=== PATIENT | female | born 1950 | race Caucasian/White ===

== ENCOUNTER → 2023-06-01 13:09 | Outpatient (REF) | payer MEDICARE, BC, SELFPAY ==
[2023-06-01 13:53] LABS: % Basophils 0.1 % (0-2); % Immature Granulocytes 0.4 % (0-0.5); % Lymphocytes 7.9 % (20.5-51.1); % Monocytes 8.3 % (1.7-9.3); % Neutrophils 83.3 % (42.2-75.2); Absolute Lymphocytes 0.6 10^3/uL (1.2-3.4); Absolute Monocytes 0.6 10^3/uL (0.1-0.6); Absolute Neutrophils 5.8 10^3/uL (1.4-6.5); Hematocrit 42.2 % (37.0-47.0); Hemoglobin 13.7 g/dL (12.0-16.0); Mean Corp Hgb Conc. 32.5 g/dL (33.0-37.0); Mean Corpuscular Hgb 31.9 pg (27.0-31.0); Mean Corpuscular Volume 98.4 fL (81.0-99.0); Nucleated Red Blood Cells % 0 %; Platelet Count 103 10^3/uL (130-400); Red Blood Cell Count 4.29 10^6/uL (4.20-5.40)
== END ==
LOC: OIDL 13:09
PROVIDERS: ATTENDING PHYSICIAN Internal Medicine Hematology & Oncology
DX: C79.51 Secondary malignant neoplasm of bone (principal); C34.80 Malignant neoplasm of overlapping sites of unspecified bronchus and lung; I80.03 Phlebitis and thrombophlebitis of superficial vessels of lower extremities, bilateral; C34.32 Malignant neoplasm of lower lobe, left bronchus or lung; E87.6 Hypokalemia
CPT/HCPCS: 85025

== ENCOUNTER → 2023-07-13 14:43 | Outpatient (REF) | payer MEDICARE, BC, SELFPAY | LOC: CLAB 14:43 | PROVIDERS: ATTENDING PHYSICIAN Internal Medicine Hematology & Oncology | DX: C79.51 Secondary malignant neoplasm of bone (principal); C34.80 Malignant neoplasm of overlapping sites of unspecified bronchus and lung; I80.03 Phlebitis and thrombophlebitis of superficial vessels of lower extremities, bilateral; C34.32 Malignant neoplasm of lower lobe, left bronchus or lung; E03.9 Hypothyroidism, unspecified; D53.9 Nutritional anemia, unspecified; R53.83 Other fatigue; R79.9 Abnormal finding of blood chemistry, unspecified; D50.9 Iron deficiency anemia, unspecified; D64.9 Anemia, unspecified; C34.11 Malignant neoplasm of upper lobe, right bronchus or lung; E87.6 Hypokalemia | CPT/HCPCS: 80053; 83880 ==

== ENCOUNTER → 2023-07-27 15:31 | Outpatient (REF) | payer MEDICARE, BC, SELFPAY ==
[2023-07-27 15:25] LABS: % Basophils 0.1 % (0-2); % Eosinophils 2.5 % (0-6); % Immature Granulocytes 0.4 % (0-0.5); % Lymphocytes 12.6 % (20.5-51.1); % Monocytes 10.6 % (1.7-9.3); % Neutrophils 73.8 % (42.2-75.2); Absolute Eosinophils 0.2 10^3/uL (0-0.7); Absolute Monocytes 0.8 10^3/uL (0.1-0.6); Absolute Neutrophils 5.6 10^3/uL (1.4-6.5); Hemoglobin 12.5 g/dL (12.0-16.0); Mean Corp Hgb Conc. 32.9 g/dL (33.0-37.0); Mean Corpuscular Hgb 31.4 pg (27.0-31.0); Mean Corpuscular Volume 95.5 fL (81.0-99.0); Mean Platelet Volume 10.6 fL (7.4-10.4); Nucleated Red Blood Cells % 0 %; Platelet Count 69 10^3/uL (130-400); Red Blood Cell Count 3.98 10^6/uL (4.20-5.40); Red Cell Dist. Width 15.5 % (11.5-14.5); White Blood Cell Count 7.6 10^3/uL (4.8-10.8)
[2023-07-27 15:33] LABS: ALT (SGPT) 19 U/L (0-35); AST (SGOT) 39 U/L (14-36); Albumin 3.8 g/dl (3.5-5.0); Alkaline Phosphatase 117 U/L (38-126); Blood Urea Nitrogen 40 mg/dl (7-17); Calcium 9.2 mg/dl (8.4-10.2); Carbon Dioxide 23 mmol/L (22-30); Chloride 103 mmol/L (98-107); Glucose 88 mg/dl (70-99); Potassium 3.8 mmol/L (3.5-5.1); Sodium 136 mmol/L (135-145); Total Bilirubin 1.2 mg/dl (0.2-1.3); Total Protein 6.8 g/dl (6.3-8.2); eGFR 52.73
[2023-07-27 16:03] LABS: TSH Reflex To Free T4 3.45 uIU/ml (0.47-4.68)
== END ==
LOC: OIDL 15:31
PROVIDERS: ATTENDING PHYSICIAN Internal Medicine Hematology & Oncology
DX: C79.51 Secondary malignant neoplasm of bone (principal); E03.9 Hypothyroidism, unspecified
CPT/HCPCS: 80053; 84443; 85025

== ENCOUNTER → 2024-01-05 16:13 | Outpatient (REF) | payer MEDICARE, BC, SELFPAY ==
[2024-01-05 14:50] LABS: % Basophils 0.1 % (0-2); % Eosinophils 0.7 % (0-6); % Immature Granulocytes 0.1 % (0-0.5); % Lymphocytes 15.1 % (20.5-51.1); Absolute Eosinophils 0.1 10^3/uL (0-0.7); Absolute Monocytes 0.6 10^3/uL (0.1-0.6); Absolute Neutrophils 5.2 10^3/uL (1.4-6.5); Hematocrit 33.8 % (37.0-47.0); Hemoglobin 11.1 g/dL (12.0-16.0); Mean Corp Hgb Conc. 32.8 g/dL (33.0-37.0); Mean Corpuscular Hgb 32.9 pg (27.0-31.0); Mean Corpuscular Volume 100.3 fL (81.0-99.0); Mean Platelet Volume 9.2 fL (7.4-10.4); Platelet Count 138 10^3/uL (130-400); Red Blood Cell Count 3.37 10^6/uL (4.20-5.40); Red Cell Dist. Width 15.8 % (11.5-14.5); White Blood Cell Count 6.9 10^3/uL (4.8-10.8)
[2024-01-05 16:01] LABS: ALT (SGPT) 15 U/L (0-35); AST (SGOT) 31 U/L (14-36); Albumin 4.3 g/dl (3.5-5.0); Alkaline Phosphatase 116 U/L (38-126); Blood Urea Nitrogen 29 mg/dl (7-17); Calcium 9.8 mg/dl (8.4-10.2); Carbon Dioxide 27 mmol/L (22-30); Chloride 100 mmol/L (98-107); Glucose 97 mg/dl (70-99); Potassium 3.8 mmol/L (3.5-5.1); Sodium 140 mmol/L (135-145); Total Bilirubin 0.9 mg/dl (0.2-1.3); Total Protein 7.1 g/dl (6.3-8.2); eGFR 47.21
== END ==
LOC: OIDL 16:13
PROVIDERS: ATTENDING PHYSICIAN Internal Medicine Hematology & Oncology
DX: C79.51 Secondary malignant neoplasm of bone (principal)
CPT/HCPCS: 80053; 85025

== ENCOUNTER → 2024-05-02 13:55 | Outpatient (REF) | payer MEDICARE, BC, SELFPAY | LOC: RCS 13:55 | PROVIDERS: ATTENDING PHYSICIAN Internal Medicine Cardiovascular Disease; FAMILY PHYSICIAN Family Medicine | DX: R06.02 Shortness of breath (principal) | CPT/HCPCS: 93306 ==

== ENCOUNTER → 2024-05-06 12:44 | Outpatient (REF) | payer MEDICARE, BC, SELFPAY ==
--- NOTE | 2024-05-06 13:15 | W.PN.UPDATE ---
Update Note
Progress Note Update
73 yo female with h/o lung cancer. She had a SL port placed in 2018 for chemotherapy. Most recently she was on antibiotics for erythema along the catheter. She states the erythema came back and her physician is concerned for infection. She denies
fever, chills, warmth, tenderness or swelling.
PE: 73 yo female in NAD. Color is good, skin warm and dry. She has erythema along the superior 2/3 of the catheter. It is not warm or tender. Ther is no fluctuance. No swelling. No active sign of cellullitis
A/P: 73 yo female with h/o lung cancer s/p SL port placement in 2018
There is erythema along the port catheter. No immediate concern for cellulitis but since she is no longer using the port we recommend removal
== END ==
LOC: RADI 12:44
PROVIDERS: ATTENDING PHYSICIAN Nurse Practitioner Adult Health; FAMILY PHYSICIAN Family Medicine
DX: T82.898A Other specified complication of vascular prosthetic devices, implants and grafts, initial encounter (principal); Y82.8 Other medical devices associated with adverse incidents; C34.32 Malignant neoplasm of lower lobe, left bronchus or lung; C34.11 Malignant neoplasm of upper lobe, right bronchus or lung

== ENCOUNTER → 2024-05-12 12:33 | Outpatient (REF) | payer MEDICARE, BC, SELFPAY ==
[2024-05-12 12:50] VITALS: BP 150/72; BP_SYST 85
[2024-05-12 14:05] VITALS: BP 137/76
== END ==
LOC: RADI 12:33
PROVIDERS: ATTENDING PHYSICIAN Nurse Practitioner Adult Health; FAMILY PHYSICIAN Family Medicine
DX: Z45.2 Encounter for adjustment and management of vascular access device (principal); C34.32 Malignant neoplasm of lower lobe, left bronchus or lung
CPT/HCPCS: 36590; 77001

== ENCOUNTER 2024-09-19 20:58 | Emergency (ER) | payer MEDICARE, BC, SELFPAY ==
[2024-09-19 21:02] VITALS: BP 130/74
--- NOTE | 2024-09-20 00:32 | ED.GENMED ---
History of Present Illness
General
Chief Complaint: Skin Surface Trauma
Source: patient
Exam Limitations: none
Time Seen by Provider: 09/20/24 00:27
Nursing documentation reviewed up to this point in time: agreed with
History of Present Illness
History of Present Illness:
Note:
CHIEF COMPLAINT(S)
Bleeding and swelling of the right fifth finger.
HISTORY OF PRESENT ILLNESS
The patient is a 73-year-old female with a history of gout, asthma, hypothyroidism, A-fib however not anticoagulated, lower platelet with status post cancer treatment few years ago, presents with persistent bleeding and swelling of the right fifth
finger. Approximately two weeks ago, the patient sustained a minor trauma to the finger, causing it to swell times its normal size. The swelling was present even before the trauma and she is diagnosed with gout. The patient reports that the bleeding
has been continuous since the injury, despite attempts to apply pressure bandages as instructed by their primary care physicians physician mental health assistant. The patient states that the bleeding increases when the bandage is removed. The patient also
describes the pain as significant and persistent, with pain relief efforts using [id number] medications such as acetaminophen and ibuprofen proving ineffective.
The patients primary care physician, Dr. Rosenberg, expressed concerns about the patients platelet and white blood cell counts contributing to the bleeding. The patient was prescribed allopurinol recently and has not started taking it.
CHRONIC MEDICAL CONDITIONS SIGNIFICANTLY AFFECTING CARE
Gout
ALLERGIES
None reported by the patient.
MEDICATIONS
Allopurinol (recently started for gout).
REVIEW OF SYSTEMS
See HPI
PHYSICAL EXAM
General: Patient is well appearing and in no acute distress; non-toxic
Skin: Warm and dry, small wound noted to the right posterior medial aspect of the fifth digit active bleeding noted
Head: Normocephalic, atraumatic
Eyes: Sclera non-icteric. EOMs intact.
Cardiac: Regular rate and rhythm, no murmur
Pulm: Normal respiratory effort
Musculoskeletal: Mild tenderness palpation over the right fifth digit with some mild swelling. No clear fluid collection or abscess for drainage. 5 out of 5 strength to the digits of the right hand, good strength against resistance. No tenderness
palpation along the flexor sheath.
Neuro: CN II-XII intact, no focal neurologic deficits.
Psychiatric: Appropriate mood and affect.
PROBLEM LIST
Acute Problems:
1. Persistent bleeding of the right fifth finger.
2. Wound care and monitoring for potential infection risk.
Chronic Problems:
1. Gout
PLAN
1. Administer pressure dressing with a hemostatic agent to attempt to control bleeding.
2. Update tetanus vaccination due to the open wound.
3. Monitor the patient for any signs of continued bleeding or instability in the emergency department for approximately 30 minutes post-intervention.
4. Consider antibiotics if infection is suspected.
5. Follow-up with the patients primary care physician for further evaluation of platelet status and possible adjustment in gout management.
6. Encourage patient to contact primary care for follow-up to ensure wound healing and no further complications.
DIFFERENTIAL DIAGNOSIS
The Differential Diagnosis includes, in no particular order and is not limited to:
1. Gout flare with complications
2. Soft tissue infection or cellulitis
3. Hematoma leading to continuous bleeding
4. Coagulopathy or platelet disorder
5. Localized vasculitis or other inflammatory process
6. Malignancy or skin neoplasm
7. Benign skin ulceration
8. Reaction to newly prescribed medication (allopurinol)
9. Nonhealing wound secondary to systemic illness
10. Traumatic finger injury with persistent soft tissue damage.
CHART REVIEW reviewed
Reviewed ER physician documentation from 11/25/2021 patient seen for blood blister hemostasis was achieved with silver nitrate cautery
Discharge summary from 09/07/2017 patient seen for acute dyspnea secondary to pneumonia versus progression of lung adenocarcinoma
MDM/DISPOSITION
73-year-old female with past medical history of thrombocytopenia presents emergency department today with persistent bleeding from her right finger wound. She reports that she got the bleeding under control with a Band-Aid but then when she remove
the Band-Aid, the bleeding seems to start again. Hemostasis achieved today with surgicel and pressure dressing. She does have some mild surrounding erythema to the wound with some tenderness and swelling. Likely secondary to gout flare as noted
by patient's primary however considering open wound will initiate antibiotics to cover for developing infection. Chest x-ray which showed no fracture or dislocation. Her tetanus was updated. Patient stable for discharge.
Past History
Past History
ED Past Medical History: Asthma, Cancer (left Lung Mass), HTN, Hypothyroidism and Other (PE)
ED Past Surgical History: Other (Right port placed, IVC filter)
Social History
Tobacco: Former smoker
Alcohol: Daily (Wine 1-2 glasses)
Drug: None
Personal:
Living: alone
Review of Systems
Review of Systems
All Other Systems: ROS reviewed and negative except as documented in HPI and ROS
Phy Exam
Physical Exam
Physical Exam:
see hpi
Course
Orders/Labs/Results
Orders:
Orders
09/20/24 01:04
Tranexamic Acid 500 mg TOPICAL NOW STA
09/20/24 01:05
Tetanus/Diphth/Acelpertussis [Adacel] 0.5 ml IM .ONCE ONE
09/20/24 01:06
Finger(s)/Thumb 2 View Rt [CR Finger(s)/thumb Min 2 Vw Rt] Urgent
Comment:
Reason For Exam: right finger pain after trauma
Vital Signs
Initial and Last Documented VS:
Initial Vital Signs
Temp Pulse Resp BP Pulse Ox
98.0 F 95 20 130/74 96
09/19/24 21:02 09/19/24 21:02 09/19/24 21:02 09/19/24 21:02 09/19/24 21:02
Last Documented Vital Signs
Temp Pulse Resp BP Pulse Ox
98.0 F 85 20 109/64 97
09/19/24 21:02 09/20/24 01:29 09/19/24 21:02 09/20/24 01:29 09/20/24 01:29
*Pulse Oximetry
SaO2: 96
Oxygen Mode of Delivery: Room air
Patient hypoxic: no
*Critical Care Note
Total Time (30-74mins, 75-104mins- exclusive of procedures): Not Applicable
ED Attending Note
-
Portions of this chart may have been created with voice recognition software.� Occasional wrong word or��sound alike� substitutions may have occurred due to the inherent limitations of voice recognition software.
Discharge Plan
Departure
Patient Disposition: Home (Routine Discharge)
Date of Disposition: 09/20/24
Time of Disposition: 02:
Patient with high blood pressure during this ER visit?: Yes
Condition: Good
Discharge Problem:
Finger wound, simple, open
Instructions: Wound Care ([place]), [facility] for W[facility] Healing-Wounds, BLOOD PRESSURE
Prescriptions:
New
cephalexin 500 mg capsule
500 mg PO TID 7 Days Qty: 21 0RF
No Action
diltiazem HCl 120 MG capsule,extended release 24hr
120 mg PO DAILY Qty: 30 0RF
folic acid 1 MG tablet
1 mg PO DAILY
ondansetron HCl 4 MG tablet
8 mg PO Q8HPRN PRN (Reason: nausea)
prochlorperazine maleate 10 MG tablet
10 mg PO Q8HPRN PRN (Reason: nausea /chemo)
acetaminophen 325 MG tablet
500 mg PO Q4HPRN PRN (Reason: PAIN)
losartan 25 MG tablet
25 mg PO DAILY
levothyroxine 50 MCG tablet
50 mcg PO DAILY
furosemide [Lasix] 40 MG tablet
40 mg PO DAILY
Referrals:
Tammy Ramírez DO [Family Provider, Family Practice]
Activity Restrictions/Additional Instructions:
Please keep dressing in place for 24 hours. After 24 hours, you can remove the dressing and change dressing once daily. Please schedule a follow-up appointment with your primary care provider for a wound check.
Surgicel was applied to the wound.
Keflex has been sent to your pharmacy. Starting tomorrow, please take 1 tablet 3 times daily for 7 days. Please follow-up with your supervisor molding.
Please return to the emergency department should you develop an acute worsening of your symptoms, increasing pain or swelling, inability to range your finger, fevers or chills, or any other signs or symptoms worrisome to you.
Interventions
Interventions:
*Risk Screen - Suicide Last Done: 09/20/24 01:37
*General Assessment Last Done: 09/19/24 21:02
*Neglect/Abuse Screening Last Done: 09/20/24 01:00
*ED- Fall Risk Assessment Last Done: 09/20/24 01:30
*ED COVID-19 Vaccine History Last Done: 09/20/24 01:30
*Nursing Disposition Last Done: 09/20/24 02:30
ED-Skin Assessment Last Done: 09/20/24 01:00
Discharge Date and Time
Discharge Date/Time: 09/20/24 02:30
Print Language: GIBRALTARIAN
[2024-09-20] MEDS: ADACEL 0.5 ML IM (01:22)
[2024-09-20 01:29] VITALS: BP 109/64
== END 2024-09-20 02:30 | disposition home or self-care (01) ==
LOC: EMR 20:58
PROVIDERS: EMERGENCY PHYSICIAN Emergency Medicine; FAMILY PHYSICIAN Family Medicine
DX: S61.206A Unspecified open wound of right little finger without damage to nail, initial encounter (principal); X58.XXXA Exposure to other specified factors, initial encounter; Z23 Encounter for immunization; E03.9 Hypothyroidism, unspecified; I10 Essential (primary) hypertension; I48.91 Unspecified atrial fibrillation; J45.909 Unspecified asthma, uncomplicated; Z87.891 Personal history of nicotine dependence
CPT/HCPCS: 99283; 90471; 73140; 90715

== ENCOUNTER 2024-09-21 18:11 | Emergency (ER) | payer MEDICARE, BC, SELFPAY ==
[2024-09-21 18:15] VITALS: BP 125/70
--- NOTE | 2024-09-21 22:12 | ED.SKININJ ---
HPI-Injury
General
Chief Complaint: Skin Problem
Source: patient
Exam Limitations: none
Time Seen by Provider: 09/21/24 22:03
Nursing documentation reviewed up to this point in time: agreed with
History of Present Illness-Injury
Initial Injury comments:
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 The area was
dressed with a Gelfoam and gauze dressing yesterday. She states today there was increased bleeding from the area when she went to change the dressing so she is here for a wound check.
Past History
Past History
ED Past Medical History: Asthma, Cancer (left Lung Mass), HTN, Hypothyroidism and Other (PE)
ED Past Surgical History: Other (Right port placed, IVC filter)
Social History
Tobacco: Former smoker
Alcohol: Daily (Wine 1-2 glasses)
Drug: None
Personal:
Living: alone
Review of Systems
Review of Systems
Allergies reviewed?: Yes
All Other Systems: ROS reviewed and negative except as documented in HPI and ROS
Skin: Reports other (Small amount of bleeding from wound on right fifth finger)
Phy Exam
Physical Exam
Physical Exam:
PHYSICAL EXAMINATION:
General: no apparent distress, not acutely ill
Neuro: alert and oriented.
Psychiatric: well kept. interactive and cooperative
Musculoskeletal: Moves with ease
Skin: Warm, pink. Multiple areas of swelling of the joints of the hands, right fifth finger DIP joint is more swollen than the rest with an open area on the ulnar aspect with no active bleeding at this time. Area cleansed,
Gelfoam and Band-Aid applied
Course
Vital Signs
Initial and Last Documented VS:
Initial Vital Signs
Temp Pulse Resp BP Pulse Ox
99.3 F 102 20 125/70 98
09/21/24 18:15 09/21/24 18:15 09/21/24 18:15 09/21/24 18:15 09/21/24 18:15
Last Documented Vital Signs
Temp Pulse Resp BP Pulse Ox
99.3 F 102 20 125/70 98
09/21/24 18:15 09/21/24 18:15 09/21/24 18:15 09/21/24 18:15 09/21/24 22:16
MDM/Problems Addressed
MDM/Problems Addressed:
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 The area was
dressed with a Gelfoam and gauze dressing yesterday. She states today there was increased bleeding from the area when she went to change the dressing so she is here for a wound check.
Wound cleansed with normal saline, Gelfoam and Band-Aid applied
No active bleeding
*Pulse Oximetry
SaO2: 98
Oxygen Mode of Delivery: Room air
Patient hypoxic: not evaluated
*Critical Care Note
Total Time (30-74mins, 75-104mins- exclusive of procedures): Not Applicable
ED Attending Note
-
Portions of this chart may have been created with voice recognition software.� Occasional wrong word or��sound alike� substitutions may have occurred due to the inherent limitations of voice recognition software.
Discharge Plan
Departure
Patient Disposition: Home (Routine Discharge)
Date of Disposition: 09/21/24
Time of Disposition: 22:11
Patient with high blood pressure during this ER visit?: No
Condition: Good
Discharge Problem:
Encounter for wound re-check
Instructions: Wound Care ([place])
Prescriptions:
No Action
diltiazem HCl 120 MG capsule,extended release 24hr
120 mg PO DAILY Qty: 30 0RF
folic acid 1 MG tablet
1 mg PO DAILY
ondansetron HCl 4 MG tablet
8 mg PO Q8HPRN PRN (Reason: nausea)
prochlorperazine maleate 10 MG tablet
10 mg PO Q8HPRN PRN (Reason: nausea /chemo)
acetaminophen 325 MG tablet
500 mg PO Q4HPRN PRN (Reason: PAIN)
losartan 25 MG tablet
25 mg PO DAILY
levothyroxine 50 MCG tablet
50 mcg PO DAILY
furosemide [Lasix] 40 MG tablet
40 mg PO DAILY
cephalexin 500 mg capsule
500 mg PO TID 7 Days Qty: 21 0RF
Referrals:
Tammy Ramírez DO [Family Provider, Family Practice] - Keep scheduled appt
Activity Restrictions/Additional Instructions:
As we discussed, using the supplies I gave you, changes to the dressing daily, reapply the Gelfoam as I showed you and then the Band-Aid.
Interventions
Interventions:
*Risk Screen - Suicide Last Done: 09/21/24 18:13
*General Assessment Last Done: 09/21/24 18:13
*Neglect/Abuse Screening Last Done: 09/21/24 20:57
*ED- Fall Risk Assessment Last Done: 09/21/24 20:56
*ED COVID-19 Vaccine History Last Done: 09/21/24 20:56
*Nursing Disposition Last Done: 09/21/24 22:24
ED-Skin Assessment Last Done: 09/21/24 20:57
Discharge Date and Time
Discharge Date/Time: 09/21/24 22:24
Print Language: TAJIK
== END 2024-09-21 22:24 | disposition home or self-care (01) ==
LOC: EMR 18:11
PROVIDERS: EMERGENCY PHYSICIAN Emergency Medicine; FAMILY PHYSICIAN Family Medicine
DX: Z48.00 Encounter for change or removal of nonsurgical wound dressing (principal); J45.909 Unspecified asthma, uncomplicated; I10 Essential (primary) hypertension; E03.9 Hypothyroidism, unspecified; Z87.891 Personal history of nicotine dependence
CPT/HCPCS: 99282